=== PATIENT | male | born 1985 | race Caucasian/White ===

== ENCOUNTER 2017-07-07 03:37 | Emergency (ER) | payer OTHER ==
[2012-11-30 05:42] VITALS: BMI 25.1
[~2017-07-07 03:37] MED LIST: MS CONTIN15 MG PO; NORCO 10/325 TA1 TA1 PO; XANAX2 MG PO
[2017-07-07 04:11] LABS: BASOPHILS 0.4 % (0-2); EOSINOPHILS 1.9 % (0-7); HEMATOCRIT 43.3 % (42.0-54.0); HEMOGLOBIN 14.2 g/dL (13.5-17.5); IMMATURE GRANULOCYTES 0.1 % (0-5); MCH 29.5 pg (26.0-34.0); MCHC 32.8 g/dL (31.0-37.0); MCV 89.8 fL (80.0-100.0); MEAN PLATELET VOLUME 8.9 fL (7.4-10.4); MONOCYTES 9.1 % (2-11); NEUTROPHILS 63.5 % (40-80); PLATELET COUNT 252 10x3/uL (130-400); RBC 4.82 10x6/uL (4.20-6.10); RDW 13.1 % (11.5-14.5); WBC 8.2 10x3/uL (4.8-10.8)
[2017-07-07 04:27] LABS: ALBUMIN 3.8 g/dL (3.4-5.0); ALKALINE PHOSPHATASE 78 U/L (46-116); ALT (SGPT) 19 U/L (10-68); BILIRUBIN - TOTAL 0.41 mg/dL (0.2-1.3); CALC OSMOLALITY 276 mosm/kg (275-300); CALCIUM 9.2 mg/dL (8.5-10.1); CHLORIDE - SERUM 101 mmol/L (98-107); CREATININE - SERUM 1.3 mg/dL (0.6-1.3); GLUCOSE 112 mg/dL (74-106); POTASSIUM - SERUM 3.7 mmol/L (3.5-5.1); PROTEIN - SERUM 8.1 g/dL (6.4-8.2); SODIUM 138 mmol/L (136-145); UREA NITROGEN 13 mg/dL (7-18); eGFR NON AFRICAN AMERICAN 67 mL/min (90-120)
[2017-07-07 04:29] LABS: TROPONIN-I < 0.017 ng/mL (0.000-0.060)
== END 2017-07-07 08:15 | disposition home or self-care (01) ==
LOC: D.ER 03:37
PROVIDERS: Emergency Medicine
DX: R07.89 Other chest pain (principal); R07.9 Chest pain, unspecified; F41.0 Panic disorder [episodic paroxysmal anxiety]; M54.16 Radiculopathy, lumbar region; F17.200 Nicotine dependence, unspecified, uncomplicated

== ENCOUNTER 2018-06-22 14:19 | Emergency (ER) | payer MEDICAID ==
[~2018-06-22] VITALS: Ht 180.3 cm; Wt 86.4 kg
[2018-06-22 14:44] VITALS: Ht 180.3 cm; Wt 86.4 kg
[2018-06-22] MEDS ORDERED: EC-NAPROSYN500 MG PO (15:44)
[2018-06-22] MEDS ORDERED: MEDROL DOSE PACK4 MG PO (15:44)
[2018-06-22 16:21] VITALS: BP 122/82
== END 2018-06-22 16:23 | disposition home or self-care (01) ==
LOC: D.ER 14:19
DX: S63.502A Unspecified sprain of left wrist, initial encounter (principal); X58.XXXA Exposure to other specified factors, initial encounter; Y93.89 Activity, other specified; Y92.89 Other specified places as the place of occurrence of the external cause; M77.9 Enthesopathy, unspecified; F17.200 Nicotine dependence, unspecified, uncomplicated

== ENCOUNTER 2018-07-23 20:01 | Emergency (ER) | payer MEDICAID ==
[~2018-07-23] VITALS: Ht 180.3 cm; Wt 90.9 kg
[~2018-07-23 20:01] MED LIST changes: +EC-NAPROSYN500 MG PO; +MEDROL DOSE PACK4 MG PO
[2018-07-23 20:25] VITALS: Ht 180.3 cm; Wt 90.9 kg
[2018-07-23] MEDS ORDERED: HYDROCODON-ACE1 EAC7 PO (22:29)
[2018-07-23 22:46] VITALS: BP 135/74
== END 2018-07-23 22:47 | disposition home or self-care (01) ==
LOC: D.ER 20:01
DX: S62.92XA Unspecified fracture of left hand, initial encounter for closed fracture (principal); W11.XXXA Fall on and from ladder, initial encounter; Y93.89 Activity, other specified; Y92.89 Other specified places as the place of occurrence of the external cause

== ENCOUNTER 2018-10-03 14:52 | Emergency (ER) | payer MEDICAID ==
[~2018-10-03] VITALS: Ht 180.3 cm; Wt 86.4 kg
[~2018-10-03 14:52] MED LIST changes: +HYDROCODON-ACE1 EAC7 PO
[2018-10-03 14:56] VITALS: Ht 180.3 cm; Wt 86.4 kg
[2018-10-03 15:32] LABS: BASOPHILS 0.2 % (0-2); EOSINOPHILS 0.5 % (0-7); HEMOGLOBIN 12.9 g/dL (13.5-17.5); IMMATURE GRANULOCYTES 0.2 % (0-5); LYMPHOCYTES 20.5 % (15-50); MCH 29.3 pg (26.0-34.0); MCHC 33.9 g/dL (31.0-37.0); MCV 86.4 fL (80.0-100.0); MONOCYTES 6.7 % (2-11); NEUTROPHILS 71.9 % (40-80); PLATELET COUNT 248 10x3/uL (130-400); RDW 12.7 % (11.5-14.5); WBC 9.1 10x3/uL (4.8-10.8)
[2018-10-03 15:53] LABS: ALBUMIN 4.2 g/dL (3.4-5.0); ALKALINE PHOSPHATASE 98 U/L (46-116); ALT (SGPT) 26 U/L (10-68); BILIRUBIN - TOTAL 0.59 mg/dL (0.2-1.3); CALC OSMOLALITY 282 mosm/kg (275-300); CALCIUM 9.4 mg/dL (8.5-10.1); CHLORIDE - SERUM 104 mmol/L (98-107); CREATININE - SERUM 1.4 mg/dL (0.6-1.3); GLUCOSE 119 mg/dL (74-106); POTASSIUM - SERUM 3.7 mmol/L (3.5-5.1); PROTEIN - SERUM 8.4 g/dL (6.4-8.2); SODIUM 140 mmol/L (136-145); UREA NITROGEN 21 mg/dL (7-18); eGFR NON AFRICAN AMERICAN 62 mL/min (90-120)
[2018-10-03 16:05] LABS: CKMB 2.6 U/L (0.0-3.6); CREATINE KINASE 246 UL (21-232); TROPONIN-I < 0.017 ng/mL (0.000-0.060)
[2018-10-03] MEDS ORDERED: VOLTAREN75 MG PO (16:15)
[2018-10-03 19:09] VITALS: BP 132/82
== END 2018-10-03 19:09 | disposition home or self-care (01) ==
LOC: D.ER 14:52
PROVIDERS: Emergency Medicine
DX: R09.1 Pleurisy (principal); R07.89 Other chest pain; S09.90XA Unspecified injury of head, initial encounter; S16.1XXA Strain of muscle, fascia and tendon at neck level, initial encounter; W18.30XA Fall on same level, unspecified, initial encounter; Y93.89 Activity, other specified; Y92.89 Other specified places as the place of occurrence of the external cause